=== PATIENT | female | born 1990 | race African-American/Black ===

== ENCOUNTER 2019-02-27 10:25 | Emergency (ER) | payer BC ==
[2019-02-27 10:46] VITALS: BMI 29.0
--- NOTE | 2019-02-27 11:04 | PDOC ---
History of Present Illness - General Chief Complaint: Pain, Acute Stated Complaint: ABD PAIN Time Seen by Provider: 02/27/19 11:03 - History of Present Illness Initial Comments: 28 year old female with no PMH presenting with gradually worsening epigastric pain since yesterday evening with nausea and vomiting. Patient states that she has had this same pain a few years ago as well and was diagnosed with gastritis after a negative CT. States she ate very little yesterday and was drinking alcohol during the day. She had 4-5 drinks. Later that evening she had some epigastric pain, nausea, and NBNB vomiting. She has never had an endoscopy or been on PPIs. Denies fevers, chills, diarrhea, or dysuria. Denies any substance use except for remote history of smoking and frequent drinking. 02/27/19 12:41 Past History - Past Medical History Allergies/Adverse Reactions: Allergies Allergy/AdvReac Type Severity Reaction Status Date / Time No Known Allergies Allergy Verified 05/16/16 07:24 Home Medications: Ambulatory Orders No Home Medications 0 dose .ROUTE UTDICT 07/20/13 Ibuprofen 800 mg PO TID #30 tablet 05/16/16 Ondansetron [Zofran *Odt*] 8 mg SL TID #30 od.tablet 05/16/16 Famotidine [Pepcid] 20 mg PO DAILY 10 Days #10 tablet 02/27/19 Ondansetron [Zofran *Odt*] 4 mg SL BID PRN 7 Days #14 od.tablet 02/27/19 COPD: No - Immunization History Immunization Up to Date: Yes - Psycho Social/Smoking Cessation Hx Smoking Status: No Smoking History: Unknown if ever smoked Have you smoked in the past 12 months: No Number of Cigarettes Smoked Daily: 3 Information on smoking cessation initiated: No 'Breaking Loose' booklet given: 07/20/13 Hx Alcohol Use: No Drug/Substance Use Hx: No Substance Use Type: Alcohol Review of Systems - Review of Systems Constitutional: No: Chills, Diaphoresis, Fever HEENTM: No: Eye Pain, Blurred Vision, Tearing Respiratory: No: Cough, Orthopnea, Shortness of Breath Cardiac (ROS): No: Chest Pain, Edema, Irregular Heart Rate ABD/GI: Yes: Nausea, Vomiting. No: Diarrhea : No: Burning, Dysuria, Discharge Musculoskeletal: No: Back Pain, Joint Pain *Physical Exam - Vital Signs Last Vital Signs Temp Pulse Resp BP Pulse Ox 97.8 F 94 H 18 136/77 100 02/27/19 10:43 02/27/19 10:43 02/27/19 10:43 02/27/19 10:43 02/27/19 10:43 - Physical Exam General Appearance: Yes: Nourished, Appropriately Dressed. No: Apparent Distress HEENT: positive: EOMI, GILBERT, Normal ENT Inspection, Normal Voice Neck: positive: Trachea midline, Normal Thyroid, Supple. negative: Tender, Rigid Respiratory/Chest: positive: Lungs Clear, Normal Breath Sounds. negative: Chest Tender, Respiratory Distress, Accessory Muscle Use Cardiovascular: positive: Regular Rhythm, Regular Rate Gastrointestinal/Abdominal: positive: Normal Bowel Sounds, Tender (epigasric gtenderness- mild), Flat, Soft. negative: Pulsatile Mass Lymphatic: negative: Adenopathy, Tenderness Musculoskeletal: positive: Normal Inspection. negative: Decreased Range of Motion, Muscle Spasm Extremity: positive: Normal Capillary Refill, Normal Inspection, Normal Range of Motion. negative: Tender Integumentary: positive: Normal Color, Dry, Warm Neurologic: positive: Fully Oriented, Alert, Normal Mood/Affect, Normal Response , Motor Strength / ED Treatment Course - LABORATORY CBC & Chemistry Diagram: 02/27/19 11:24 02/27/19 11:24 Medical Decision Making - Medical Decision Making 28 year old female with history of gastritis presenting with epigastric pain after drinking on a relatively under-filled stomach yesterday. She has also had multiple episodes of NBNB vomit. VSS and patient appears wella fter fluids, reglan, and zofran. DC'd with zofran, pepcid, and GI follow up. 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 02/27/19 12:53 Discharge - Discharge Information Problems reviewed: Yes Clinical Impression/Diagnosis: Nausea & vomiting Qualifiers: Vomiting type: unspecified Vomiting Intractability: non-intractable Qualified Code(s): R11.2 - Nausea with vomiting, unspecified Condition: Stable Disposition: HOME - Admission No - Additional Discharge Information Prescriptions: Famotidine [Pepcid] 20 mg PO DAILY 10 Days #10 tablet Ondansetron [Zofran *Odt*] 4 mg SL BID PRN 7 Days #14 od.tablet PRN Reason: Nausea And/Or Vomiting - Follow up/Referral Referrals: Kwabena Meza MD [Staff Physician] - - Patient Discharge Instructions Patient Printed Discharge Instructions: DI for Gastritis Additional Instructions: Please use your Pepcid daily for the next 10 days. Please make an appointment with the GI doctor. Please do not drink alcohol or spicy foods until you see the GI doctor. Please return to the ED if you have new or worsening symptoms. - Post Discharge Activity
[2019-02-27] MEDS ORDERED: SODIUM CHLORIDE 0.9% 500 ML INFUS.BAG IV ONE (11:21)
[2019-02-27 11:42] LABS: BASO % 0.9 % (0-2.0); EOS % 0.2 % (0-4.5); HEMATOCRIT 39.1 % (32.4-45.2); HEMOGLOBIN 12.8 GM/dL (10.7-15.3); LYMPH % 6.3 % (8-40); MCH 26.7 pg (25.7-33.7); MCHC 32.7 g/dl (32.0-36.0); MEAN CELL VOLUME 81.6 fl (80-96); MONO % 3.6 % (3.8-10.2); RBC 4.79 M/mm3 (3.60-5.2); RDW 14.8 % (11.6-15.6); WHITE BLOOD COUNT 19.1 K/mm3 (4.0-10.0)
[2019-02-27] MEDS ORDERED: METOCLOPRAMIDE HCL INJECTION 10 MG/2 ML VIAL IVPUSH ONE (12:07)
[2019-02-27] MEDS ORDERED: METOCLOPRAMIDE HCL INJECTION 10 MG/2 ML VIAL ONE (12:13)
[2019-02-27 12:18] LABS: ALBUMIN 4.6 g/dl (3.4-5.0); BILIRUBIN,TOTAL 0.6 mg/dL (0.2-1); BLOOD UREA NITROGEN 12.9 mg/dL (7-18); CALCIUM 9.3 mg/dL (8.5-10.1); POTASSIUM 4.2 mmol/L (3.5-5.1); TOT PROT 8.7 g/dl (6.4-8.2)
--- NOTE | 2019-02-27 12:54 | PDOC ---
Attending Attestation - Resident Resident Name: Balbina Johnson - ED Attending Attestation I have performed the following: I have examined & evaluated the patient, The case was reviewed & discussed with the resident, I agree w/resident's findings & plan - HPI HPI: 02/27/19 12:51 28-year-old female with no significant past medical history other than gastritis presents now with epigastric pain and vomiting following alcohol intake last night. Pain is constant, sharp, localized to the epigastric region. Describes nonbloody nonbilious vomiting, no fevers or chills, no travel , no recent antibiotics. Never had endoscopy, was never maintained on PPIs. - Physicial Exam PE: 02/27/19 12:51 Afebrile, negative Alert, writhing in stretcher but distractible, conversant No jaundice or pallor Heart is regular, lungs are clear Abdomen is soft/nondistended. Epigastric discomfort to palpation without guarding or rebound. No CVA tenderness, no right upper quadrant tenderness. No rash, no edema - Medical Decision Making 02/27/19 12:53 Healthy 28-year-old female with history of gastritis presents with epigastric pain/vomiting in the setting of alcohol intake, likely dyspepsia secondary to alcohol, no evidence of bleeding ulcer, no peritoneal findings on examination, hemodynamically stable. Labs notable for leukocytosis with normal differential, normal LFTs, normal lipase Received antacids and Maalox, antiemetics, IV fluids Reassess, disposition accordingly with GI follow-up and Pepcid course. Heart Score/ECG Review #1 ECG reviewed & interpreted by me at: 11:28 General ECG Interpretation: Sinus Rhythm, Normal Rate (72), Normal Intervals ( qtc 420), No acute ischemic changes
[2019-02-27 13:11] LABS: PLATELET ESTIMATE NORMAL
[2019-02-27 14:49] VITALS: BP 127/68; PULSE 88; TEMP 98.5
--- NOTE | 2019-02-27 15:45 | EKG ---
Test Reason : Blood Pressure : / mmHG Vent. Rate : 072 BPM Atrial Rate : 072 BPM P-R Int : 140 ms QRS Dur : 082 ms QT Int : 384 ms P-R-T Axes : 030 002 003 degrees QTc Int : 420 ms SINUS RHYTHM WITH MARKED SINUS ARRHYTHMIA POSSIBLE ANTERIOR INFARCT , AGE UNDETERMINED ABNORMAL ECG NO PREVIOUS ECGS AVAILABLE Confirmed by MD Juan Francisco, Martin ([id number]) on 02/27/2019 3:45:38 PM Referred By: Confirmed By:Martin Chicas MD
== END 2019-02-27 14:51 | disposition home or self-care (01) ==
LOC: JER 10:25
PROC: 3E033GC Introduction of Other Therapeutic Substance into Peripheral Vein, Percutaneous Approach (ICD-10-PCS; principal; 2019-02-27)
DX: K29.20 Alcoholic gastritis without bleeding (principal)
CPT/HCPCS: 36415; 80053; 82150; 83690; 84703; 85025; 93005; 93010; 99283-25

== ENCOUNTER 2020-09-07 04:05 | Emergency (ER) | payer OTHER ==
[2020-09-07 04:44] VITALS: BP 127/75; PULSE 106; TEMP 98.4; BMI 31.4
[2020-09-07] MEDS ORDERED: DIPHTH,PERTUSS(ACELL),TET 0.5 ML DISP.SYRIN IM ONE (04:51)
== END 2020-09-07 05:56 | disposition left against medical advice (07) ==
LOC: JER 04:05
PROC: 3E0234Z Introduction of Serum, Toxoid and Vaccine into Muscle, Percutaneous Approach (ICD-10-PCS; principal; 2020-09-07)
DX: S01.81XA Laceration without foreign body of other part of head, initial encounter (principal)
CPT/HCPCS: 99284-25